=== PATIENT | female | born 1950 | race Caucasian/White ===

== ENCOUNTER → 2017-12-09 | Outpatient (CLI) | payer MEDICARE, OTHER | LOC: CIMAGING 10:57 | PROVIDERS: ATTEND Family Medicine | DX: Z12.31 Encounter for screening mammogram for malignant neoplasm of breast (principal) ==

== ENCOUNTER → 2017-12-17 | Outpatient (CLI) | payer MEDICARE, OTHER | LOC: BMCIMAGING 10:15 | PROVIDERS: ATTEND Family Medicine | DX: R92.8 Other abnormal and inconclusive findings on diagnostic imaging of breast (principal) ==

== ENCOUNTER 2018-08-11 12:29 | Emergency (ER) | payer OTHER ==
[2018-08-11] MEDS ORDERED: ASPIRIN 81 MG CHEWABLE TAB PO ONE (12:55)
[2018-08-11] MEDS ORDERED: KETOROLAC 15 MG/1 ML SDV IVP ONE (13:09)
[2018-08-11] MEDS ORDERED: NS 1,000 ML IV ONE (13:10)
[2018-08-11] MEDS ORDERED: METOCLOPRAMIDE 10 MG/2 ML VIAL IVP ONE (13:10)
--- NOTE | 2018-08-11 14:54 | EDPHY ---
H & P Stated Complaint: Pt. states chest pressure last 3 days in am then subsides, fatigue Time Seen by Provider: 08/11/18 12:49 HPI/ROS: This patient complains of a 3 day history of chest heaviness intermittently for the past 3 days typically lasting 15-20 minutes at a time with no clear eliciting factors, exacerbating factors. No association with exertion. Peak intensity is been 6/10 nonradiating substernal pressure. Currently it is 4/10. Occasionally does radiate to her back. She reports associated left arm and leg paresthesias that after previous workups this been ascribed to migraine or a variant this she also sometimes has associated headaches and reported a mild frontal headache prior to arrival at his since worsen to 8/10 frontal headache sharp in nature similar to previous headaches but worse in intensity. She denies any other associated symptoms except for fatigue. She is accompanied by her who brought her in by private vehicle for evaluation of the symptoms. ROS: Constitutional: No fevers or chills. HEENT: No recent URI symptoms Or head trauma. Neuro: As mentioned in HPI paresthesias to left hand-the symptoms had frequently in the past. No other focal neuro symptoms at this time. No confusion. No visual changes. Pulmonary: Mild shortness of breath earlier that has since resolved. She thinks this may have been associated with anxiety. Cardiovascular: She felt lightheaded earlier but states that has resolved now. She had sharp pain in the right calf yesterday that has since resolved. She stated this was crampy in nature. GI: No abdominal pain. The no nausea or vomiting. Integumentary: No rash. No pallor or diaphoresis. 10 point review of symptoms is performed and otherwise negative with exception of pertinent positives and negatives listed in HPI and ROS Source: Patient Exam Limitations: No limitations - Personal History Current Tetanus Diphtheria and Acellular Pertussis (TDAP): Yes Tetanus Vaccine Date: 2014 - Medical/Surgical History Hx Asthma: No Hx Chronic Respiratory Disease: No Hx Diabetes: No Hx Cardiac Disease: No Hx Renal Disease: No Hx Cirrhosis: No Hx Alcoholism: No Hx HIV/AIDS: No Hx Splenectomy or Spleen Trauma: No Other PMH: Med hx- choles,HTN,restless leg. Surg-chris,appy,tubal,sinus,hyst, glaucoma, - Family History Significant Family History: No pertinent family hx - Social History Smoking Status: Never smoked Alcohol Use: Occasionally Drug Use: None - Physical Exam Exam: General Appearance: Alert, no distress. Eyes: Pupils equal and round no pallor or injection. Optic fundi: No papilledema or hemorrhage. ENT, Mouth: Mucous membranes moist. Respiratory: There are no retractions, lungs are clear to auscultation. Cardiovascular: Regular rate and rhythm. No murmur gallop rub. No leg swelling or tenderness. No chest wall tenderness Gastrointestinal: Abdomen is soft and nontender, no masses, bowel sounds normal. Neurological: GCS 15. No focal deficits. Despite paresthesias left hand she maintains normal sensation there. Cranial nerves 2-12 grossly intact. Skin: Warm and dry, no rashes. Musculoskeletal: Neck is supple nontender. Extremities are symmetrical, full range of motion. Psychiatric: Mood and affect are normal DIFFERENTIAL DIAGNOSIS: After history and physical exam differential diagnosis was considered for migraine, tension headache, somatic symptoms as part of our of migraine, myocardial ischemic disease, pulmonary embolism, pneumonia, pneumothorax, GERD Constitutional: Initial Vital Signs Temperature (C) 36.9 C 08/11/18 12:37 Heart Rate 75 08/11/18 12:37 Respiratory Rate 18 08/11/18 12:37 Blood Pressure 164/71 H 08/11/18 12:37 O2 Sat (%) 94 08/11/18 12:37 O2 Delivery Mode Room Air Allergies/Adverse Reactions: Sulfa (Sulfonamide Antibiotics) Allergy (Verified 08/11/18 12:35) Home Medications: Medication Instructions Recorded Atorvastatin Calcium 08/11/18 Gabapentin 08/11/18 Levothyroxine 08/11/18 Lisinopril 08/11/18 Vitamin D3 08/11/18 Medical Decision Making - Diagnostics EKG Interpretation: 12 lead EKG performed shortly after arrival indication chest pain Performed at 12:37 p.m. Sinus rhythm at 77 Intervals: Normal throughout [place]: Normal throughout ST segments: Normal throughout Overall assessment: Normal EKG Repeat EKG performed at 2:34 p.m. Indication resolution of chest pain evaluate for interval change/dynamic EKG changes Performed at 2:34 p.m. Sinus rhythm at 77 Intervals: Normal throughout [place]: Normal throughout ST segments: Normal throughout Overall assessment: Normal EKG Imaging Results: Two view chest x-ray: Normal by my interpretation Imaging: I viewed and interpreted images myself ED Course/Re-evaluation: IV, monitor, aspirin 324 p.o. IV Toradol, Reglan, Benadryl, normal saline bolus for acute headache with resolution of headache. Patient also had resolution of her chest pain without further intervention. Finally, her paresthesias resolved. She felt well thereafter and remained stable on the monitor with no further complaints. I calculated a heart score of 3 for this patient considering her age, history of hypercholesterolemia (treated). Studies: Normal CBC, normal troponin, normal basic metabolic panel, normal D- dimer Discussion: This patient presents with 8/10 headache and [id number]-ky-vycpirel intermittent chest pain. Her headache resolved with typical migraine medication treatment and she had no red flag findings on her history or exam. Her chest pain is atypical for cardiac pain that is associated with exertion, has been present 3 days with a normal troponin normal EKGs x2. Given normal chest x-ray and D-dimer and lack of PE risk factors we effectively ruled out thromboembolic disease. Given normotensive state lack of persistent symptoms or severity and normal D-dimer do not think she is having a dissecting thoracic aortic aneurysm. She denies any GERD symptoms. I reviewed the patient's findings with her in some detail and offered the option of a a 6 hr troponin, observation admission or home. She understands the small risk of potentially missing significant coronary artery disease despite our initial workup and signs the personal risk evaluation sheet with plan for close follow-up with Cardiology. Answered all of her 's questions prior to discharge home. - Data Points Medications Given: Discontinued Medications Aspirin (Aspirin) 324 mg PO EDNOW ONE Stop: 08/11/18 12:56 Last Admin: 08/11/18 13:39 Dose: 324 mg Diphenhydramine HCl (Benadryl Injection) 25 mg IVP EDNOW ONE Stop: 08/11/18 13:11 Last Admin: 08/11/18 13:43 Dose: 25 mg Sodium Chloride (Ns) 1,000 mls @ 0 mls/hr IV ONCE ONE; Wide Open PRN Reason: Protocol Stop: 08/11/18 13:11 Last Admin: 08/11/18 13:36 Dose: 1,000 mls Ketorolac Tromethamine (Toradol) 15 mg IVP EDNOW ONE Stop: 08/11/18 13:10 Last Admin: 08/11/18 13:43 Dose: 15 mg Metoclopramide HCl (Reglan Injection) 10 mg IVP EDNOW ONE Stop: 08/11/18 13:11 Last Admin: 08/11/18 13:50 Dose: 10 mg Point of Care Test Results: CBC CBC Collection Date 08/11/18 CBC Collection Time 12:40 WBC 7.26 RBC 5.21 HGB 14.9 HCT 45.7 PLT 231 Neut # 4.03 Neut 55.5 LYMPH # 2.6 LYMPH 35.8 MCV 87.7 Chemistry 08/11/18 08/11/18 12:48 12:46 POC Sodium 145 mEq/L mEq/L (135-145) POC Potassium 3.3 mEq/L mEq/L (3.3-5.0) POC Chloride 106.0 mEq/L mEq/L (97-110) POC Total CO2 25 mEq/L mEq/L (22-31) POC BUN 17 mg/dL mg/dL (7-23) POC Creatinine 0.6 mg/dL mg/dL (0.6-1.0) POC Glucose 145 mg/dL H mg/dL (70-100) POC Calcium 9.6 mg/dL mg/dL (8.5-10.4) POC Troponin I 0.00 ng/mL ng/mL (0.00-0.08) D-Dimer D-Dimer Collection Date 08/11/18 D-Dimer Collection Time 12:40 D-Dimer (ng/ml) 376 Departure - Departure Disposition: Home, Routine, Self-Care Clinical Impression: Acute chest pain Migraine headache with aura Qualifiers: Status migrainosus presence: without status migrainosus Intractability: not intractable Qualified Code(s): G43.109 - Migraine with aura, not intractable, without status migrainosus Condition: Good Instructions: Chest Pain (ED), Migraine Headache (ED) Additional Instructions: Diagnoses:. Migraine headache 2. Acute chest pain Today had a normal EKG x2, normal blood count, heart enzyme, D-dimer and chest x -ray. The cause of your chest pain is unclear, but based on the results of today's workup we do not appreciate evidence of acute heart or lung cause of her symptoms. However, we cannot entirely rule out coronary disease in 1 visit so it is important he follow up with Cardiology. Plan: Call Dr[facility] arrange follow-up appointment for further evaluation Ibuprofen and/or Tylenol for headache or chest pain if it recurs Return emergency department if he developed any significant worsening symptoms despite treatment plan Referrals: Diana Conner DO [Primary Care Provider] - As per Instructions Gabriel Benoit MD [Medical Doctor] - As per Instructions
[2018-08-11 15:08] VITALS: BP 130/65
--- NOTE | 2018-08-12 07:03 | CPEKG ---
Test Reason : OPEN Blood Pressure : / mmHG Vent. Rate : 077 BPM Atrial Rate : 077 BPM P-R Int : 137 ms QRS Dur : 094 ms QT Int : 397 ms P-R-T Axes : 028 -06 021 degrees QTc Int : 450 ms Sinus rhythm Confirmed by Marika Malcolm ([id number]) on 08/12/2018 7:03:17 AM Referred By: MARIKA MALCOLM Confirmed By:Marika Malcolm
== END 2018-08-11 15:03 | disposition home or self-care (01) ==
LOC: CED 12:29
DX: R07.9 Chest pain, unspecified (principal); G43.109 Migraine with aura, not intractable, without status migrainosus; I10 Essential (primary) hypertension; E86.9 Volume depletion, unspecified
CPT/HCPCS: 71046; 93005; 96361; 96374; 96375; 99285; J1200; J1885; J2765; 80048-ER; 84484-ER